=== PATIENT | female | born 1995 | race American Indian/Alaskan Native ===

== ENCOUNTER 2017-08-15 02:06 | Emergency (ER) | payer OTHER ==
[2017-08-15 02:10] VITALS: BMI 49.4
--- NOTE | 2017-08-15 02:40 | ED PDOC ---
Arrival/HPI - General Chief Complaint: Medical Clearance Time Seen by Provider: 08/15/17 02:38 Historian: Police - History of Present Illness Narrative History of Present Illness (Text): 08/15/17 02:35 Brandon Quispe is a 22 year old presents to the emergency department in police custody for medical clearance prior to incarceration. Patient is currently 3 months . Patient denies any somatic complaints. Patient states that she feels fine. Patient denies any suicidal ideation, homicidal ideation, or any other complaints at this time. Patient is in vitamins only. Symptom Onset: Other (none) Modifying Factors (Text): none Context: Other (police custody) Associated Symptoms (Text): none Past Medical History - Provider Review Nursing Documentation Reviewed: Yes - Cardiac Hx Cardiac Disorders: No - Pulmonary Hx Respiratory Disorders: No - Neurological Hx Neurological Disorder: No - HEENT Hx HEENT Disorder: No - Renal Hx Renal Disorder: No - Endocrine/Metabolic Hx Endocrine Disorders: No - Hematological/Oncological Hx Blood Disorders: No - Integumentary Hx Dermatological Disorder: No - Musculoskeletal/Rheumatological Hx Musculoskeletal Disorders: No - Gastrointestinal Hx Gastrointestinal Disorders: No - Genitourinary/Gynecological Hx Genitourinary Disorders: No - Psychiatric Hx Psychophysiologic Disorder: No Hx Substance Use: No Family/Social History - Physician Review Nursing Documentation Reviewed: Yes Family/Social History: No Known Family HX Smoking Status: Never Smoked Hx Alcohol Use: No Hx Substance Use: No Allergies/Home Meds Allergies/Adverse Reactions: Allergies No Known Allergies Allergy (Verified 08/15/17 02:11) Home Medications: Home Meds Medication Instructions Recorded Confirmed No Known Home Med 08/15/17 08/15/17 Review of Systems - Physician Review All systems were reviewed & negative as marked: Yes - Review of Systems Constitutional: absent: Fevers, Night Sweats Eyes: absent: Vision Changes ENT: absent: Hearing Changes Respiratory: absent: SOB, Cough Cardiovascular: absent: Chest Pain Gastrointestinal: absent: Abdominal Pain, Vomiting Genitourinary Female: absent: Dysuria Musculoskeletal: absent: Arthralgias Skin: absent: Rash, Pruritis Neurological: absent: Headache, Dizziness Endocrine: absent: Diaphoresis Hemo/Lymphatic: absent: Adenopathy Psychiatric: absent: Anxiety, Depression, Suicidal Ideation Physical Exam Vital Signs Reviewed: Yes Vital Signs Temp Pulse Resp BP Pulse Ox 08/15/17 02:07 98.3 F 78 16 135/77 99 - Systems Exam Head: Present: Atraumatic, Normocephalic Pupils: Present: PERRL Extroacular Muscles: Present: EOMI Conjunctiva: Present: Normal Mouth: Present: Moist Mucous Membranes Neck: Present: Normal Range of Motion Respiratory/Chest: Present: Clear to Auscultation, Good Air Exchange. No: Respiratory Distress, Accessory Muscle Use Cardiovascular: Present: Regular Rate and Rhythm, Normal S1, S2. No: Murmurs Abdomen: Present: Normal Bowel Sounds. No: Tenderness, Distention, Peritoneal Signs Back: Present: Normal Inspection Upper Extremity: Present: Normal Inspection. No: Cyanosis, Edema Lower Extremity: Present: Normal Inspection. No: Edema Neurological: Present: GCS=15, CN II-XII Intact, Speech Normal Skin: Present: Warm, Dry, Normal Color. No: Rashes Psychiatric: Present: Alert, Oriented x 3, Normal Insight, Normal Concentration Medical Decision Making ED Course and Treatment: 08/15/17 02:52 Impression: 22 year old presents to the emergency department in police custody for medical clearance prior to incarceration. Patient is currently 3 months . Plan: -- Discharge Progress Notes: - Scribe Statement The provider has reviewed the documentation as recorded by the Monalisaibbreann Kelly Provider Scribe Attestation: All medical record entries made by the Scribe were at my direction and personally dictated by me. I have reviewed the chart and agree that the record accurately reflects my personal performance of the history, physical exam, medical decision making, and the department course for this patient. I have also personally directed, reviewed, and agree with the discharge instructions and disposition. Disposition/Present on Arrival - Present on Arrival Any Indicators Present on Arrival: No History of DVT/PE: No History of Uncontrolled Diabetes: No Urinary Catheter: No History of Decub. Ulcer: No History Surgical Site Infection Following: None - Disposition Have Diagnosis and Disposition been Completed?: Yes Diagnosis: Normal exam Disposition: RELEASED IN POLICE CUSTODY Disposition Time: 02:41 Patient Plan: Discharge Condition: GOOD Discharge Instructions (ExitCare): Normal Exam (ED) Additional Instructions: PATIENT MEDICALLY CLEARED FOR POLICE CUSTODY/INCARCERATION Forms: [employer] ([place]ayan)
[2017-08-15 03:52] VITALS: BP 135/77; PULSE 78; RESP 16; TEMP 98.3; O2SAT 99
== END 2017-08-15 03:00 ==
LOC: ED 02:06
DX: Z00.00 Encounter for general adult medical examination without abnormal findings (principal)